=== PATIENT | male | born 1935 | race Caucasian/White ===

== ENCOUNTER → 2017-04-23 | Outpatient (CLI) | payer MEDICARE, OTHER ==
--- NOTE | 2017-04-24 16:38 | XCELERA REPORT ---
[address] [address] Lower Extremity Arterial Evaluation Name: YOSSI BILLINGS Age: 81 yrs Gender: Male : 1935 Patient Status: Outpatient Patient Location: Study Date: 04/23/2017 02:36 PM Procedure: A color flow and duplex scan of the lower extremity arteries was performed bilaterally with velocity and waveform anaylsis. Ankle brachial indicies performed. Reason For Study: PVD Ordering Physician: CARITO BREWSTER Performed By: Emily Schofield Measurements and Calculations Right Left TESTING ANALYST PSV 218.0 156.3 cm/sec Prox PFA PSV -119.4 80.8 cm/sec Prox SFA PSV 158.0 126.3 cm/sec Mid SFA PSV -140.2 -129.5 cm/sec Dist SFA PSV -94.8 -140.4 cm/sec Prox Pop A PSV 99.2 157.1 cm/sec Dist CIERA PSV 98.7 126.3 cm/sec Dist [employer] PNEU[employer] REPAIRER PSV 248.9 69.5 cm/sec Charan Pedis PSV 44.8 33.7 cm/sec Right Side Arterial Evaluation Normal velocity and triphasic waveforms noted from the Common Femoral artery to the Posterior Tibial artery . Biphasic in the Anterior Tibial artery. Biphasic in the Deep Femoral artery as well. 0-19% stenosis at the Anterior Tibial artery. Ankle Brachial index was not obtainable due to non compressibility. Left Side Arterial Evaluation Normal velocity and biphasic waveforms noted from the Common Femoral artery to the infrageniculate vessels. Davie waveforms and well preserved velocities. 0-19% stenosis at the Aorta Iliac Ankle Brachial index is 1.06. Interpretation Summary Mild hemodynamically significant lesions in the bilateral lower extremities, on duplex imaging, at rest. : CARITO BREWSTER > Giovany Portillo
== END ==
LOC: SP 13:52
PROVIDERS: ATTEND Preventive Medicine Undersea and Hyperbaric Medicine
DX: I70.25 Atherosclerosis of native arteries of other extremities with ulceration (principal)
CPT/HCPCS: 93922; 93925